=== PATIENT | female | born 1950 | race Caucasian/White ===

== ENCOUNTER 2017-04-22 16:42 | Emergency (ER) | payer OTHER ==
[~2017-04-22 16:42] MED LIST: ALPR0.5T3 PO; ATOR20TA PO; GABA300 PO; LOPE2TAB3 PO; LORT7.5T3 PO; METH750T2 PO; NAPR-576 PO; OMEP20TA PO; SYNT25TA PO; TEMA15CA PO; VENL100T PO
[2017-04-22 16:46] VITALS: BP 144/79; PULSE 80; RESP 20; TEMP 98.2; O2SAT 97
[2017-04-22] MEDS ORDERED: GABA300C5 PO (17:02)
[2017-04-22] MEDS ORDERED: ATEN25TA PO (17:02)
[2017-04-22] MEDS ORDERED: ALPR.5 PO (17:02)
[2017-04-22] MEDS ORDERED: VALA500T PO (17:02)
[2017-04-22] MEDS ORDERED: DICY10 PO (17:02)
[2017-04-22] MEDS ORDERED: TEMA15CA PO (17:02)
[2017-04-22] MEDS ORDERED: LIPI20TA PO (17:02)
[2017-04-22] MEDS ORDERED: VENL150T PO (17:02)
[2017-04-22] MEDS ORDERED: LEVO50TA4 PO (17:02)
[2017-04-22] MEDS ORDERED: URISPAS PO (17:02)
[2017-04-22] MEDS ORDERED: LOMO2.5T PO (17:02)
[2017-04-22] MEDS ORDERED: OMEP20TA PO (17:02)
[2017-04-22] MEDS ORDERED: HYDR-3533 PO (17:02)
--- NOTE | 2017-04-22 18:07 | PD ---
HPI Chief Complaint: Skin Problem Time Seen by Provider: 17:38 Travel History International Travel<30 days: No Contact w/Intl Traveler<30days: No Traveled to known affect area: No History of Present Illness HPI This patient complains of an outbreak of shingles. She gets shingles outbreaks frequently. She takes an antiviral which she has a supply at home whenever shingles outbreaks occurs. She had her that it was more dangerous near the eye so she wanted to get this checked out. Location is her left eyebrow. Symptoms severity is mild PFSH Past Medical History Hx Anticoagulant Therapy: Yes (BABY ASA) Arthritis: Yes Blood Disorders: No Anxiety: Yes Depression: Yes Cancer: No Cardiovascular Problems: Yes (HTN, CHOL) High Cholesterol: Yes Diabetes: No Diminished Hearing: No Fibromyalgia: Yes Gastrointestinal Disorders: Yes (IBS) GERD: Yes Genitourinary: Yes (INCONTINENCE) Hepatitis: No Hiatal Hernia: No Hypertension: Yes Musculoskeletal: Yes (OSTEOPOROSIS) Immunizations Current: Yes Shingles: Yes ("RECURRENT") Thyroid Disease: Yes (HYPO) Tetanus Vaccination: > 5 Years Influenza Vaccination: Yes PNEUMOCCOCAL Vaccine (Year): 2006 ?: Not Menopausal: Yes Past Surgical History Abdominal Surgery: Yes (APPENDECTOMY) Appendectomy: Yes Cholecystectomy: Yes Gynecologic Surgery: Yes (ABLATION X2, HYSTERECTOMY) Hysterectomy: Yes Oral Surgery: Yes (TONSILLECTOMY) Pacemaker: No Tonsillectomy: Yes Other Surgery: Yes (ORTHOPEDIC) Social History Alcohol Use: Yes (SOCIAL) Tobacco Use: Yes (E-CIG; QUIT CIGARETTES 2002) Substance Use: No Allergies-Medications (Allergen,Severity, Reaction): Coded Allergies: Latex (Verified Allergy, Mild, 04/22/17) Uncoded Allergies: AMALIA (Allergy, Severe, Rash, 04/22/17) Reported Meds & Prescriptions Reported Meds & Active Scripts Active Reported Temazepam 15 Mg Cap 1-2 Cap PO HS PRN Xanax (Alprazolam) 0.5 Mg Tab 0.5 Mg PO Q8H PRN [Urispas] 100 Mg PO TID Valacyclovir (Valacyclovir HCl) 500 Mg Tab 500 Mg PO TID Bentyl (Dicyclomine HCl) 10 Mg Cap 10 Mg PO TID PRN Lomotil (Diphenoxylate-Atropine) 2.5-0.025 Mg Tab 1 Tab PO Q6H PRN Lortab (Hydrocodone-Acetaminophen) 5-325 Mg Tab 1 Tab PO Q8HR PRN Gabapentin 300 Mg Cap 300 Mg PO BID Omeprazole 20 Mg Tab 20 Mg PO DAILY Lipitor (Atorvastatin Calcium) 20 Mg Tab 20 Mg PO HS Atenolol 25 Mg Tab 25 Mg PO DAILY Venlafaxine ER 24 HR (Venlafaxine HCl) 150 Mg Tab 150 Mg PO DAILY Levothyroxine (Levothyroxine Sodium) 50 Mcg Tab 50 Mcg PO DAILY Review of Systems General / Constitutional: No: Fever HENT: No: Headaches Cardiovascular: No: Chest Pain or Discomfort Respiratory: No: Cough Physical Exam Narrative SKIN: Focused skin assessment reveals a very small area of vesicle near the left eyebrow almost at the midline. No ulcers. Skin is warm and dry. Palpation shows no induration or nodules. NECK: Symmetrical appearance, midline trachea. No mass or crepitus. Thyroid without enlargement, tenderness, or mass. Psych: Normal mood and affect. Normal insight and judgment. Both sclerae are clear Pupil Function normal Nasal area clear of lesions Data Data Last Documented VS Vital Signs Date Time Temp Pulse Resp B/P Pulse Ox O2 Delivery O2 Flow Rate FiO2 04/22/17 16:46 98.2 80 20 144/79 97 MDM Medical Decision Making Medical Screen Exam Complete: Yes Emergency Medical Condition: Yes Medical Record Reviewed: Yes Differential Diagnosis Shingles, allergic reaction, dermatitis Narrative Course I have reviewed the patient's electronic medical record. Patient may be having a start of early shingles flare. There is a tiny clump of vesicles near the left brow but no involvement of the eyes. There is no conjunctival irritation or injection or eye pain or foreign body sensation etc. We discussed the symptoms to look for and she will return if any occur. She has antiviral medication to start at home Advised to call her physician Tuesday for follow-up Diagnosis Primary Impression: Vesicular rash Additional Instructions: The patient was advised to follow up with their physician and return if they worsen. Med/Other Pt SpecificInfo: Other Disposition: 01 DISCHARGE HOME Condition: Stable Luis E Solano MD Apr 22, 2017 18:07
[2017-04-23] MEDS ORDERED: FLAV100T PO (22:52)
== END 2017-04-22 18:19 | disposition home or self-care (01) ==
LOC: PHED 16:42
DX: R23.8 Other skin changes (principal); I10 Essential (primary) hypertension; E07.9 Disorder of thyroid, unspecified; E78.00 Pure hypercholesterolemia, unspecified; Z72.0 Tobacco use; Z79.82 Long term (current) use of aspirin; Z87.39 Personal history of other diseases of the musculoskeletal system and connective tissue; Z86.59 Personal history of other mental and behavioral disorders; Z86.79 Personal history of other diseases of the circulatory system; Z87.19 Personal history of other diseases of the digestive system; Z87.448 Personal history of other diseases of urinary system; Z86.69 Personal history of other diseases of the nervous system and sense organs
CPT/HCPCS: 99282

== ENCOUNTER 2017-09-12 15:40 | Emergency (ER) | payer OTHER ==
[~2017-09-12] VITALS: Ht 165.1 cm; Wt 70.0 kg
[~2017-09-12 15:40] MED LIST changes: +ALPR.5 PO; -ALPR0.5T3 PO; +ATEN25TA PO; -ATOR20TA PO; +DICY10 PO; +FLAV100T PO; -GABA300 PO; +GABA300C5 PO; +HYDR-3533 PO; +LEVO50TA4 PO; +LIPI20TA PO; +LOMO2.5T PO; -LOPE2TAB3 PO; -LORT7.5T3 PO; -METH750T2 PO; -NAPR-576 PO; -OMEP20TA PO; +OMEP20TA93 PO; -SYNT25TA PO; +VALA500T PO; -VENL100T PO; +VENL150T PO
[2017-09-12 15:50] VITALS: BP 124/67; PULSE 70; RESP 16; TEMP 98.1; O2SAT 97
[2017-09-12] MEDS ORDERED: HYDR-3516 PO (17:46)
[2017-09-12] MEDS ORDERED: GABA300C5 PO (17:46)
[2017-09-12] MEDS ORDERED: URISPAS PO (17:46)
[2017-09-12] MEDS ORDERED: ACETAMINOPHEN 500 MG CPLT PO ONE (18:15)
--- NOTE | 2017-09-12 18:16 | PD ---
HPI Chief Complaint: Fall Time Seen by Provider: 17:49 Travel History International Travel<30 days: No Contact w/Intl Traveler<30days: No Traveled to known affect area: No History of Present Illness HPI This is a 67-year-old female who presents to the emergency department having fallen 2 days ago. She was on a porch and fell off landing about 3 feet below, injuring her left shoulder and left chest. She didn't lose consciousness. She is reporting currently left-sided chest discomfort, worse with moving her arm and going from sitting to standing position, moderate severity with no associated shortness of breath. She also has upper back pain on the left side. She denies any weakness or numbness. She's been taking Aleve for the pain. PFSH Past Medical History Hx Anticoagulant Therapy: Yes (BABY ASA) Arthritis: Yes Blood Disorders: No Anxiety: Yes Depression: Yes Cancer: No Cardiovascular Problems: Yes (HTN, CHOL) High Cholesterol: Yes Diabetes: No Diminished Hearing: No Fibromyalgia: Yes Gastrointestinal Disorders: Yes (IBS) GERD: Yes Genitourinary: Yes (INCONTINENCE) Hepatitis: No Hiatal Hernia: No Hypertension: Yes Musculoskeletal: Yes (OSTEOPOROSIS) Respiratory: No Immunizations Current: Yes Shingles: Yes ("RECURRENT") Thyroid Disease: Yes (HYPO) PNEUMOCCOCAL Vaccine (Year): 2006 ?: Not Menopausal: Yes Past Surgical History Abdominal Surgery: Yes (APPENDECTOMY) Appendectomy: Yes Cholecystectomy: Yes Gynecologic Surgery: Yes (ABLATION X2, HYSTERECTOMY) Hysterectomy: Yes Oral Surgery: Yes (TONSILLECTOMY) Pacemaker: No Tonsillectomy: Yes Other Surgery: Yes (ORTHOPEDIC) Social History Alcohol Use: Yes (2-3 daily) Tobacco Use: Yes (E-CIG; QUIT CIGARETTES 2002) Substance Use: No Allergies-Medications (Allergen,Severity, Reaction): Coded Allergies: latex (Unverified Allergy, Mild, 05/10/17) Uncoded Allergies: AMALIA (Allergy, Severe, Rash, 04/22/17) Reported Meds & Prescriptions Reported Meds & Active Scripts Active Reported [urispas] 100 Mg PO TID Hydrocodone-Acetaminophen 5-325 mg Tab 1 Tab PO Q4H PRN Gabapentin 300 Mg Cap 300 Mg PO BID Temazepam 15 Mg Cap 1-2 Cap PO HS PRN Xanax (Alprazolam) 0.5 Mg Tab 0.5 Mg PO Q8H PRN Valacyclovir (Valacyclovir HCl) 500 Mg Tab 500 Mg PO TID Bentyl (Dicyclomine HCl) 10 Mg Cap 10 Mg PO TID PRN Lomotil (Diphenoxylate-Atropine) 2.5-0.025 Mg Tab 1 Tab PO Q6H PRN Omeprazole 20 Mg Tab 20 Mg PO DAILY Lipitor (Atorvastatin Calcium) 20 Mg Tab 20 Mg PO HS Atenolol 25 Mg Tab 25 Mg PO DAILY Venlafaxine ER 24 HR (Venlafaxine HCl) 150 Mg Tab 150 Mg PO DAILY Levothyroxine (Levothyroxine Sodium) 50 Mcg Tab 50 Mcg PO DAILY Review of Systems Except as stated in HPI: all other systems reviewed are Neg Physical Exam Narrative GENERAL:Well appearing, no acute distress SKIN: Focused skin assessment warm and dry. HEAD: Atraumatic. Normocephalic. EYES: Pupils equal and round. No injection or drainage. ENT: Moist mucous membranes NECK: Trachea midline. No cervical spine tenderness. CARDIOVASCULAR: Regular rate and rhythm. No murmur appreciated. RESPIRATORY: Clear to auscultation. Breath sounds equal bilaterally. GASTROINTESTINAL: Abdomen soft, non-tender, nondistended. MUSCULOSKELETAL: Tender to palpation over the left upper anterior rib cage, and left upper thoracic spine as well as left upper thoracic paraspinal muscles. Full painless range of motion of the left shoulder and no focal tenderness over the clavicle. NEUROLOGICAL: Awake and alert. No obvious cranial nerve deficits. Moving all extremities. PSYCHIATRIC: Appropriate mood and affect; insight and judgment normal. Data Data Last Documented VS Vital Signs Date Time Temp Pulse Resp B/P (MAP) Pulse Ox O2 Delivery O2 Flow Rate FiO2 09/12/17 15:50 98.1 70 16 124/67 (86) 97 Orders Orders Chest, Single Ap (09/12/17 ) Spine, Thoracic-Ap/Lat/Sw(3vw) (09/12/17 ) Acetaminophen (Tylenol) (09/12/17 18:15) MDM Medical Decision Making Medical Screen Exam Complete: Yes Emergency Medical Condition: Yes Differential Diagnosis Rib fracture, pneumothorax, hemothorax, T-spine fracture, muscle sprain Narrative Course This is a 67-year-old female who presents to the emergency department with left- sided upper chest pain and left upper back pain following a fall 2 days ago. She has diffuse tenderness on exam involving the left upper chest and left upper thoracic paraspinal muscles. She denies significant head injury and her cervical spine physical exam is reassuring. Plan for plain films of the chest and thoracic spine. If reassuring I think the patient can be discharged on with instructions for continued analgesia. Kristen Caballero MD Sep 12, 2017 18:16
--- NOTE | 2017-09-12 19:16 | PD ---
Data Data Last Documented VS Vital Signs Date Time Temp Pulse Resp B/P (MAP) Pulse Ox O2 Delivery O2 Flow Rate FiO2 09/12/17 20:48 09/12/17 20:40 75 16 97 Nasal Cannula 2.00 09/12/17 15:50 98.1 Orders Orders Chest, Single Ap (09/12/17 ) Spine, Thoracic-Ap/Lat/Sw(3vw) (09/12/17 ) Acetaminophen (Tylenol) (09/12/17 18:15) Ed Discharge Order (09/12/17 20:09) MDM Medical Record Reviewed: Yes Supervised Visit with VENANCIO: No Narrative Course Please refer to the outgoing provider documentation. X-ray of the thoracic spine reveals no acute fracture X-ray of the chest reveals no acute injury In summary no evidence of acute injury likely all mild soft tissue contusions/ strain. Patient found resting comfortably. Patient reassured. Patient's ready for discharge. Vital Signs Date Time Temp Pulse Resp B/P (MAP) Pulse Ox O2 Delivery O2 Flow Rate FiO2 09/12/17 20:48 09/12/17 20:40 75 16 96/55 (69) 97 Nasal Cannula 2.00 09/12/17 19:47 88 16 121/68 (85) 99 Room Air 09/12/17 15:50 98.1 70 16 124/67 (86) 97 Diagnosis Primary Impression: Fall Qualified Codes: W19.XXXA - Unspecified fall, initial encounter Additional Impression: Contusion Qualified Codes: S40.012A - Contusion of left shoulder, initial encounter Med/Other Pt SpecificInfo: No Change to Meds Scripts Ibuprofen (Ibuprofen) 400 Mg Tab 400 MG PO Q6H for 5 Days, #20 TAB 0 Refills Prov: Robert Chase MD 09/12/17 Disposition: 01 DISCHARGE HOME Condition: Stable Robert Chase MD Sep 12, 2017 19:16
[2017-09-12 19:47] VITALS: BP 121/68; PULSE 88; RESP 16; O2SAT 99
--- NOTE | 2017-09-12 19:50 | RADRPT ---
EXAM DATE/TIME: 09/12/2017 18:36 [facility] COMPARISON: CHEST PA & LAT, March 10, 2016, 12:14. INDICATIONS : Trauma, fall. MEDICAL HISTORY : None. SURGICAL HISTORY : None. ENCOUNTER: Initial ACUITY: 3 days PAIN SCORE: 4/10 LOCATION: Bilateral chest FINDINGS: A single view of the chest demonstrates the lungs to be symmetrically aerated without evidence of mas s, infiltrate or effusion. The cardiomediastinal contours are unremarkable. No fractures of the lat eral right 4th through 6th ribs.. CONCLUSION: The lungs are clear. Oswald Moses MD on September 12, 2017 at 19:47 Board Certified Radiologist. This report was verified electronically.
--- NOTE | 2017-09-12 19:51 | RADRPT ---
EXAM DATE/TIME: 09/12/2017 18:36 [facility] COMPARISON: No previous studies available for comparison. INDICATIONS : Trauma, fall. MEDICAL HISTORY : None. SURGICAL HISTORY : None. ENCOUNTER: Initial ACUITY: 3 days PAIN SCORE: 5/10 LOCATION: upper back. FINDINGS: There is normal alignment of the thoracic vertebral bodies in lateral projection. Normal curvature o f the thoracolumbar spine convex towards the left. Vertebral body height is maintained. No evidence of fracture or subluxation. Pedicles are intact at all levels. The paravertebral reflections are n ot thickened. CONCLUSION: No evidence of compression deformity or spondylolisthesis. Oswald Moses MD on September 12, 2017 at 19:48 Board Certified Radiologist. This report was verified electronically.
[2017-09-12] MEDS ORDERED: IBUP1TAB5 PO (20:13)
[2017-09-12 20:40] VITALS: BP 96/55; PULSE 75; RESP 16; O2SAT 97
[2017-09-13] MEDS ORDERED: FLAV100T PO (11:29)
== END 2017-09-12 20:50 | disposition home or self-care (01) ==
LOC: PHED 15:40
DX: S40.012A Contusion of left shoulder, initial encounter (principal); I10 Essential (primary) hypertension; M81.0 Age-related osteoporosis without current pathological fracture; W17.89XA Other fall from one level to another, initial encounter; Y92.008 Other place in unspecified non-institutional (private) residence as the place of occurrence of the external cause; Z79.01 Long term (current) use of anticoagulants; Z87.891 Personal history of nicotine dependence
CPT/HCPCS: 71010; 72072; 99283